=== PATIENT | male | born 1970 | race Caucasian/White ===

== ENCOUNTER → 2023-12-09 09:02 | Outpatient (REF) | payer BC, SELFPAY | LOC: HWRAD 09:02 | PROVIDERS: ATTENDING PHYSICIAN Surgery; FAMILY PHYSICIAN Family Medicine | DX: D49.4 Neoplasm of unspecified behavior of bladder (principal) | CPT/HCPCS: 74178; Q9967 ==

== ENCOUNTER → 2025-08-31 18:50 | Outpatient (REF) | payer OTHER, SELFPAY | LOC: MRI 18:50 | PROVIDERS: ATTENDING PHYSICIAN Neurological Surgery; FAMILY PHYSICIAN Family Medicine | DX: G50.0 Trigeminal neuralgia (principal) | CPT/HCPCS: 70553; A9575 ==